=== PATIENT | female | born 1975 | race Two or more races ===

== ENCOUNTER 2024-04-09 11:31 | Emergency (ER) | payer MEDICAID ==
[~2024-04-09] VITALS: Ht 149.9 cm; Wt 77.3 kg
[2024-04-09 11:38] VITALS: TEMP 98.3
[2024-04-09] MEDS ORDERED: LISI-662 PO (11:40)
[2024-04-09] MEDS ORDERED: HYDR50TA PO (11:40)
[2024-04-09 14:46] VITALS: BP 127/79; PULSE 66; RESP 18
== END 2024-04-09 14:48 | disposition home or self-care (01) ==
LOC: EMS 11:31
DX: M17.11 Unilateral primary osteoarthritis, right knee (principal); I10 Essential (primary) hypertension; Z90.49 Acquired absence of other specified parts of digestive tract; Z98.890 Other specified postprocedural states
CPT/HCPCS: 99283